=== PATIENT | female | born 1995 | race Caucasian/White ===

== ENCOUNTER 2020-07-11 15:08 | Inpatient (IN) ==
[2020-07-11 15:41] LABS: Basophils # 0.1 K/mcL (0.0-0.2); Basophils % 0.6 %; Eosinophils % 0.4 %; Hematocrit 48.8 % (35.3-44.9); Hemoglobin 15.7 g/dL (11.5-15.4); Immature Granulocytes % 0.3 % (0-4); Lymphocytes # 1.6 K/mcL (0.6-4.6); Lymphocytes % 20.6 %; Mean Corpuscular HGB Conc 32.2 g/dL (31.6-35.5); Mean Platelet Volume 9.9 fL (9.4-12.4); Monocytes # 0.7 K/mcL (0.0-1.3); Monocytes % 9.4 %; Neutrophils # 5.4 K/mcL (1.6-8.9); Platelet Count 292 K/mcL (140-400); Red Blood Count 5.42 M/mcL (3.82-4.97); Red Cell Distribution Width 12.9 % (11.5-14.5); Segmented Neutrophils % 68.7 %; White Blood Count 7.9 K/mcL (4.3-11.1)
[2020-07-11 15:48] LABS: Bacteria,Urine Few per hpf (None-Few); Bilirubin,Urine Negative (Negative); Blood,Urine Small (Negative); Clarity,Urine Turbid (Clear); Color,Urine Yellow (Yellow); Glucose,Urine (UA) Normal (Normal); Hyaline Casts,Urine Few per lpf (None Seen); Ketones,Urine Negative (Negative); Leukocyte Esterase,Urine Trace (Negative); Mucus,Urine Moderate per lpf (None-Few); Nitrite,Urine Negative (Negative); PH,Urine 6.5 pH Units (5.0-8.0); Protein,Urine 30 mg/dL (Neg-Trace); Specific Gravity,Urine > 1.030 (1.010-1.025); Squamous Epithelial Cell,Urine Moderate per hpf (None-Few)
[2020-07-11 15:51] LABS: Amphetamine Screen,Urine Negative ng/mL (Cutoff=1000); Barbiturate Screen,Urine Negative ng/mL (Cutoff=200); Benzodiazepines Screen,Urine Negative ng/mL (Cutoff=200); Cannabinoid Screen,Urine Negative ng/mL (Cutoff = 50); Cocaine Screen,Urine Negative ng/mL (Cutoff= 300); Opiate Screen,Urine Negative ng/mL (Cutoff=300); Phencyclidine Screen,Urine Negative ng/mL (Cutoff=25)
[2020-07-11 16:09] LABS: Estimated Average Glucose 97 mg/dl
[2020-07-11 16:24] LABS: Acetaminophen < 10 mcg/mL (10-20); BUN/Creatinine Ratio 10 (6-26); Blood Urea Nitrogen 11 mg/dL (6-20); Carbon Dioxide 24 mEq/L (23-29); Chloride 105 mEq/L (98-107); Chol/HDL Ratio 3.5 (0-4.9); Cholesterol 128 mg/dL (< 200); Ethanol < 10 mg/dL (Less than 10); Glucose 87 mg/dL (70-105); HDL Cholesterol 37 mg/dL (40-59); LDL Cholesterol,Calculated 74 mg/dL (< 100); Osmolality,Calculated 285 (280-300); Potassium 3.6 mEq/L (3.5-5.1); Salicylate < 2.5 mg/dL (15.0-30.0); Sodium 138 mEq/L (136-145); Triglycerides 86 mg/dL (< 150); eGFR For African Americans > 60 (> 60); eGFR For Non-African Americans > 60 (> 60)
[2020-07-11] MEDS ORDERED: Nitrofurantoin (BID) 100 MG CAPSULE PO ONE (16:30)
[2020-07-11] MEDS ORDERED: haloperidoL 5 MG TABLET PO PRN (17:26)
[2020-07-11] MEDS ORDERED: Mag Hydrox/Al Hydrox/Simeth 30 ML UDC PO PRN (17:26)
[2020-07-11] MEDS ORDERED: *HR* LORazepam 1 MG TABLET PO PRN (17:26)
[2020-07-11] MEDS ORDERED: traZODone 50 MG TABLET PO PRN (17:26)
[2020-07-11] MEDS ORDERED: MOM Conc 10 ML UD.LIQ PO PRN (17:26)
[2020-07-11] MEDS ORDERED: *HR* LORazepam 2 MG/ML VIAL IM PRN (17:26)
[2020-07-11] MEDS ORDERED: Haloperidol Lactate 5 MG/ML VIAL IM PRN (17:26)
[2020-07-11] MEDS: hydrOXYzine pamoate 25 MG CAPSULE PO PRN (20:10)
[2020-07-11] MEDS: Acetaminophen 325 MG TABLET PO PRN (20:10)
[2020-07-12] MEDS: Nitrofurantoin (BID) 100 MG CAPSULE PO SCH ×2 (08:49→17:11)
[2020-07-12] MEDS: ARIPiprazole 10 MG TABLET PO SCH (08:49)
[2020-07-12] MEDS ORDERED: Lurasidone 20 MG TABLET PO ONE (17:26)
[2020-07-13] MEDS: Nitrofurantoin (BID) 100 MG CAPSULE PO SCH ×2 (09:07→17:03)
[2020-07-13] MEDS: ARIPiprazole 10 MG TABLET PO SCH (09:07)
[2020-07-13] MEDS: hydrOXYzine pamoate 25 MG CAPSULE PO SCH ×2 (09:07→21:16)
[2020-07-13] MEDS: Acetaminophen 325 MG TABLET PO PRN ×2 (15:52→21:17)
[2020-07-13] MEDS: Lurasidone 20 MG TABLET PO SCH (17:03)
[2020-07-14] MEDS: hydrOXYzine pamoate 25 MG CAPSULE PO PRN (01:35)
[2020-07-14] MEDS: Lurasidone 20 MG TABLET PO SCH (09:01)
[2020-07-14] MEDS: ARIPiprazole 10 MG TABLET PO SCH (09:01)
[2020-07-14] MEDS: Nitrofurantoin (BID) 100 MG CAPSULE PO SCH (09:01)
[2020-07-14] MEDS: hydrOXYzine pamoate 25 MG CAPSULE PO SCH (09:02)
[2020-07-14 09:37] VITALS: BP 126/74
== END 2020-07-14 15:15 | disposition home or self-care (01) | DRG 885 ==
LOC: EMEROOARM 15:08 → SUATTDRO 17:05 → 1ANU 17:05
PROVIDERS: ADMIT Psychiatry & Neurology Psychiatry; ATTEND Psychiatry & Neurology Forensic Psychiatry